=== PATIENT | male | born 1995 | race African-American/Black ===

== ENCOUNTER 2016-06-16 18:47 | Emergency (ER) | payer OTHER ==
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
[2016-06-16 19:17] VITALS: BP 131/51; PULSE 71; TEMP 98; BMI 25.8
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
== END 2016-06-16 20:59 | disposition home or self-care (01) ==
LOC: JER 18:47
PROC: 2W38X1Z Immobilization of Right Upper Extremity using Splint (ICD-10-PCS; principal; 2016-06-16)
DX: S62.392A Other fracture of third metacarpal bone, right hand, initial encounter for closed fracture (principal); S62.394A Other fracture of fourth metacarpal bone, right hand, initial encounter for closed fracture; Y04.0XXA Assault by unarmed brawl or fight, initial encounter; Y93.89 Activity, other specified; Y92.118 Other place in children's home and orphanage as the place of occurrence of the external cause
CPT/HCPCS: 29125; 73130-TC-RT; 99282-25

== ENCOUNTER 2016-12-08 19:21 | Emergency (ER) | payer OTHER ==
[2016-12-08 19:33] VITALS: BP 158/97; PULSE 80; TEMP 97.9; BMI 28.8
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
[2016-12-08 21:18] LABS: URINE APPEARANCE SLCLOUDY; URINE BILIRUBIN NEGATIVE (NEGATIVE); URINE BLOOD NEGATIVE (NEGATIVE); URINE COLOR DKYELLOW; URINE GLUCOSE (UA) NEGATIVE (NEGATIVE); URINE KETONE TRACE (NEGATIVE); URINE LEUK ESTERASE NEGATIVE (NEGATIVE); URINE NITRITE NEGATIVE (NEGATIVE); URINE UROBILINOGEN 4.0 E.U/dl mg/dL (0.2-1.0)
[2016-12-08 21:19] LABS: URINE PROTEIN 1+ (NEGATIVE)
[2016-12-08 21:22] LABS: URINE MUCUS MANY; URINE RBC <1 /hpf (0-3); URINE WBC 1 /hpf (3-5)
[2016-12-08 21:27] LABS: URINE MARIJUANA THC POSITIVE ng/ml (CUTOFF=50)
[2016-12-08 21:34] LABS: HIV 1 & 2 AB NEGATIVE; HIV 1 AGp24 NEGATIVE
== END 2016-12-08 21:59 | disposition home or self-care (01) ==
LOC: JERFT 19:21
DX: R30.0 Dysuria (principal); F12.10 Cannabis abuse, uncomplicated; F31.9 Bipolar disorder, unspecified; F25.9 Schizoaffective disorder, unspecified
CPT/HCPCS: 36415; 80307; 81003; 81015; 86593; 87389; 87491; 87591; 99281-25

== ENCOUNTER → 2017-10-12 | Emergency (ER) | payer SELFPAY ==
[~2017-10-12] MED LIST: DIPHTH,PERTUSS(ACELL),TET 0.5 ML DISP.SYRIN IM ONE; HALOPERIDOL LACTATE 5 MG/ML IM ONE; HALOPERIDOL LACTATE 5 MG/ML ONE; LORazepam 2 MG/ML SDV VIAL ONE
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
[2017-10-12 02:00] VITALS: BMI 29.0
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
[2017-10-12 06:23] LABS: BASO % 0.5 % (0-2.0); EOS % 0.9 % (0-4.5); HEMATOCRIT 37.5 % (35.4-49); HEMOGLOBIN 12.9 GM/dL (11.7-16.9); LYMPH % 21.3 % (8-40); MCH 29.9 pg (25.7-33.7); MCHC 34.4 g/dl (32.0-35.9); MEAN CELL VOLUME 86.8 fl (80-96); MONO % 9.7 % (3.8-10.2); NEUT % 67.6 % (42.8-82.8); PLATELET COUNT 209 K/MM3 (134-434); RBC 4.32 M/mm3 (4.00-5.60); RDW 13.3 % (11.9-15.9)
[2017-10-12 06:48] LABS: ALBUMIN 3.7 g/dl (3.4-5.0); ANION GAP 7 (8-16); BLOOD UREA NITROGEN 13 mg/dL (7-18); CALCIUM 8.9 mg/dL (8.5-10.1); CHLORIDE 107 mmol/L (98-107); CO2 26 mmol/L (21-32); CREATININE 0.9 mg/dL (0.7-1.3); GLUCOSE,RANDOM 82 mg/dL (74-106); POTASSIUM 4.1 mmol/L (3.5-5.1); SGOT/AST 27 U/L (15-37); SGPT/ALT 25 U/L (12-78); SODIUM 140 mmol/L (136-145)
[2017-10-12 06:51] LABS: ALK PHOS 64 U/L (45-117); BILIRUBIN,TOTAL 0.3 mg/dL (0.2-1.0); TOT PROT 7.2 g/dl (6.4-8.2)
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
[2017-10-12 09:34] VITALS: BP 110/67; PULSE 77; TEMP 97.7
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
--- NOTE | 2017-10-12 12:10 | EKG ---
Test Reason : Blood Pressure : / mmHG Vent. Rate : 091 BPM Atrial Rate : 091 BPM P-R Int : 144 ms QRS Dur : 082 ms QT Int : 340 ms P-R-T Axes : 051 056 041 degrees QTc Int : 418 ms NORMAL SINUS RHYTHM NORMAL ECG WHEN COMPARED WITH ECG OF JAN 23 2011 NO SIGNIFICANT CHANGE WAS FOUND Confirmed by AUDREY HSU MD ([id number]) on 10/12/2017 12:09:37 PM Referred By: Confirmed By:AUDREY HSU MD
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
== END | disposition home or self-care (01) ==
LOC: JER 01:14
PROC: 0HQEXZZ Repair Left Lower Arm Skin, External Approach (ICD-10-PCS; principal; 2017-10-12)
PROC: 0HQLXZZ Repair Left Lower Leg Skin, External Approach (ICD-10-PCS; 2017-10-12)
PROC: 3E023NZ Introduction of Analgesics, Hypnotics, Sedatives into Muscle, Percutaneous Approach (ICD-10-PCS; 2017-10-12)
PROC: 3E0234Z Introduction of Serum, Toxoid and Vaccine into Muscle, Percutaneous Approach (ICD-10-PCS; 2017-10-12)
PROC: 3E023NZ Introduction of Analgesics, Hypnotics, Sedatives into Muscle, Percutaneous Approach (ICD-10-PCS; 2017-10-12)
PROC: 3E023NZ Introduction of Analgesics, Hypnotics, Sedatives into Muscle, Percutaneous Approach (ICD-10-PCS; 2017-10-12)
DX: S51.812A Laceration without foreign body of left forearm, initial encounter (principal); S31.010A Laceration without foreign body of lower back and pelvis without penetration into retroperitoneum, initial encounter; S81.812A Laceration without foreign body, left lower leg, initial encounter; X99.8XXA Assault by other sharp object, initial encounter; Y93.89 Activity, other specified; Y92.198 Other place in other specified residential institution as the place of occurrence of the external cause; Y99.8 Other external cause status; F17.210 Nicotine dependence, cigarettes, uncomplicated; F25.9 Schizoaffective disorder, unspecified; F31.9 Bipolar disorder, unspecified; R44.1 Visual hallucinations
CPT/HCPCS: 36415; 70450-TC; 73090-TC-LT-FY; 73590-TC-LT-FY; 80053; 84443; 85025; 90715; 93005; 93010; 99285-25